=== PATIENT | male | born 1950 | race Caucasian/White ===

== ENCOUNTER 2023-11-20 13:05 | Emergency (ER) | payer OTHER, SELFPAY ==
[2023-11-20 13:24] VITALS: BP 129/59; PULSE 58; RESP 16; TEMP 36.7; O2SAT 98
--- NOTE | 2023-11-20 13:31 | ED.URI ---
HPI - URI/Sore Throat General Chief Complaint: Upper Respiratory Infection Stated Complaint: Sinus Congestion/Diarrhea Time Seen by Provider: 11/20/23 13:31 Source: patient Mode of arrival: ambulatory Limitations: no limitations History of Present Illness HPI Narrative: 73-year-old male presented for complaint of nasal congestion, cough, and diarrhea. Reports nasal congestion cough worsening over the past 2 weeks, occasional wheeze at night. States diarrhea has worsened over the past week. Endorses a history of lactose intolerance, and has not been taking lactose medication. Denies abdominal pain, hematochezia, melena or decreased appetite. Denies shortness of breath, wheezing, nausea, vomiting, Fever or lethargy. taking [id number] flu/ cold medication for symptoms. Related Data Home Medications Medication Instructions Recorded Confirmed dapagliflozin propanediol 10 mg 10 mg PO DAILY 11/20/23 11/20/23 tablet (Farxiga) donepezil 5 mg tablet 10 mg PO HS 11/20/23 11/20/23 ezetimibe 10 mg tablet 10 mg PO DAILY 11/20/23 11/20/23 insulin glargine U-300 conc 300 40 unit subcut DAILY 11/20/23 11/20/23 unit/mL (1.5 mL) subcutaneous pen (Toujeo SoloStar U-300 Insulin) sertraline 100 mg tablet 100 mg PO DAILY 11/20/23 11/20/23 Allergies Allergy/AdvReac Type Severity Reaction Status Date / Time No Known Allergies Allergy Verified 11/20/23 13:22 Review of Systems Review of Systems: CONSTITUTIONAL: Denies body aches, fever, chills, or sweats. EYES: Denies visual changes, redness, or discharge. ENT: reports rhinorrhea, congestion, denies sore throat, or otalgia. CARDIOVASCULAR: Denies chest pain, palpitations, or edema. RESPIRATORY: Reports cough, denies sob GASTROINTESTINAL: Denies abdominal pain, nausea, vomiting, or diarrhea. SKIN: Denies rash, itching, or wounds. MUSCULOSKELETAL: Denies back pain, joint pain, or myalgia. NEUROLOGIC: reports headache All systems reviewed & are unremarkable except as noted in HPI and below PMFSH Past Medical History Medical History (Updated 11/20/23 @ 14:38 by Wanda Leon, PAT) Diabetes Comments At time of signature, I have reviewed and agree with nursing past medical, surgical, social and family history unless otherwise noted. Please see nursing chart for further information. There is no relevant family history pertinent to the presenting complaint Exam Narrative: GENERAL: Well-appearing, in no acute distress. EYES: EOMI. No redness or drainage. Conjunctivae normal. ENT: Mucous membranes pink and moist. No rhinorrhea. TMs normal bilaterally. Throat normal. Uvula midline. CHEST: No respiratory distress. Expiratory Wheezing to Bilateral bases. HEART: Regular rate and rhythm. No murmur appreciated. ABDOMEN: Soft, nontender, nondistended, normal active bowel sounds. SKIN: Warm, dry, no rash. Capillary refill normal. Normal skin turgor. NEURO: Alert and oriented x3. Gait steady. PSYCH: Normal affect. Course Course Emergency Course: Patient is aware of diagnosis, understands and agrees to treatment plan. Anticipatory guidance given. Patient agrees to follow-up as directed and is aware of reasons to seek care at the emergency department. Portions of this record may have been created with voice recognition software Level of Care: Express Care Visit Vital Signs Vital signs: Vital Signs Temperature 98.1 F 11/20/23 13:24 Pulse Rate 58 L 11/20/23 13:24 Respiratory Rate 16 11/20/23 13:24 Blood Pressure 129/59 L 11/20/23 13:24 Pulse Oximetry 98 11/20/23 13:24 Oxygen Delivery Room Air 11/20/23 13:24 Temperature 98.1 F 11/20/23 13:35 Pulse Rate 58 L 11/20/23 13:35 Respiratory Rate 16 11/20/23 13:35 Blood Pressure 129/59 L 11/20/23 13:35 Pulse Oximetry 98 11/20/23 13:35 Oxygen Delivery Room Air 11/20/23 13:35 MDM - URI/Sore Throat MDM Narrative Medical decision making narrative: Discussed
[2023-11-20 13:35] VITALS: BP 129/59; PULSE 58; RESP 16; TEMP 36.7; O2SAT 98
== END 2023-11-20 13:50 | disposition home or self-care (01) ==
PROVIDERS: Emergency Provider Nurse Practitioner Family; PCP Internal Medicine
DX: J40 Bronchitis, not specified as acute or chronic (principal); J06.9 Acute upper respiratory infection, unspecified; R19.7 Diarrhea, unspecified; E11.9 Type 2 diabetes mellitus without complications; Z79.4 Long term (current) use of insulin
CPT/HCPCS: 99213; G0463

== ENCOUNTER 2024-11-21 08:40 | Emergency (ER) | payer OTHER, SELFPAY ==
--- NOTE | ~2024-11-21 | XR_ITS ---
EXAMINATION: XR chest 2V DATE: 11/21/2024 09:18 INDICATION: Cough and congestion. TECHNIQUE: Frontal and lateral views of the chest were obtained. COMPARISON: None. FINDINGS: There is mild atelectasis at left lung base. No pleural effusion or pneumothorax. The heart size is normal. IMPRESSION: 1. Mild atelectasis at left lung base. Reviewed, dictated and finalized at location A.
[2024-11-21 08:46] VITALS: BP 124/65; PULSE 59; RESP 20; TEMP 36.4; O2SAT 98
--- OUTSIDE RECORDS SUMMARY | 2024-11-21 09:01 | XMS_ITS | Encounter Summary ---
Author Organization [facility] Healthcare Address [address] [place] [address] Care Team Providers Care Manuscript Editor Name Role Phone Trever Hilliard MD Primary Care Provider [phone]- [phone] Reason for Referral * MRI/CAT/PET Scan (Routine) - Closed Specialty Diagnoses / Procedures Referred By Contrigoberto [email or web address] Referred To Contact Radiology Procedures MRI Brain WO Contrast Gabo Szymanski MD [address] [place] [address] Phone: tel: Referral ID Status Reason Start Date Expiration Date Visits Re quested Visits Authorized [id number] Closed 11/19/2024 12/19/2025 1 1 Encounter Details Date Type Department Care Team (Late st Contact Info) Description 11/19/2024 Orders Only [facility] [address] [place] [id number] Gabo Szymanski MD [address] [place] [address] Social History Tobacco Use Types Packs/Day Years Used Date Smoking Tobacco: Never Smokeless Tobacco: Never AUDIT-C Answer Date Recorded Q1: How often do you have a drink containing alcohol? Never 08/19/2024 Q2: How many drinks containi ng alcohol do you have on a typical day when you are drinking? Patient does not drink Q3: How often do you have si x or more drinks on one occasion? Never 08/19/2024 PHQ-2 Answer Date Recorded PHQ-2 Total Score (If total score is 3 or more points, staff should administer the PHQ-9) 0 02/16/2024 Personal Safety Answer Date Recorded Have you ever been in or are you currently in a harmful physical or emotional relationship or is someone making you feel afraid or unsafe? 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 Gender Identity Not on file Sexual Orientation Not on file documented as of this encounter Plan of Treatment Not on file documented as of this encounter Procedures Procedure Name Priority Date/Time Associated Diagnosis Comments MRI BRAIN WO CONTRAST Schedule Routine, Read Routine (OP Routine) 11/19/2024 2:55 PM CDT documented in this encounter Results * MRI Brain WO Contrast (11/19/2024 2:55 PM CDT) Anatomical Region Laterality Modality Head and Neck N/A Magnetic Resonan ce us Historical Provider MD [facility] MRI PROCEDURES Final Result documented in this encounter Visit Diagnoses Not on filedocumented in this encounter Care Teams Manuscript Editor Relationship Specialty Start Date End Date Trever Hilliard MD PCP - General 10/04/13 documented as of this encounter
--- OUTSIDE RECORDS SUMMARY | 2024-11-21 09:01 | XMS_ITS | Encounter Summary ---
[facility] Organization [facility] [address] [place] [address] Phone Care Team Providers Care Cst Name Role Phone Trever Hilliard MD Primary Care Provider [phone]- [phone] Trever Hilliard MD Primary Care Provider + [phone] Trever Hilliard MD Primary Care Provider Trever Hilliard MD Primary Care Provider [phone]- [phone] Encounter Details Date Type Department Care Team (Late st Contact Info) Description 06/06/1951 Orders Only [facility] [address] [place] [address] Scanning, Provider Social History Tobacco Use Types Packs/Day Years Used Date Smoking Tobacco: Never Assessed Sex and Gender Information Value Date Recorded Sex Assigned at Not on file 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 Gender Identity Not on file Sexual Orientation Not on file documented as of this encounter Plan of Treatment Not on file documented as of this encounter Procedures Procedure Name Priority Date/Time Associated Diagnosis Comments PROCEDURE - RESULT 06/06/1951 documented in this encounter Results * PROCEDURE - RESULT (06/06/1951) us Provider Scanning Final Result documented in this encounter Visit Diagnoses Not on filedocumented in this encounter Care Teams Cst Relationship Specialty Start Date End Date Trever Hilliard MD PCP - General 10/04/13 Trever Hilliard MD PCP - General 10/29/12 10/03/13 Trever Hilliard MD PCP - General 01/27/12 10/28/12 Trever Hilliard MD PCP - General 01/07/11 01/26/12 documented as of this encounter
--- OUTSIDE RECORDS SUMMARY | 2024-11-21 09:01 | XMS_ITS | Clinical Summary ---
Author Organization [facility] Address [address] [place] [address] Care Team Providers Care Lawn Specialist Name Role Phone Trever Hilliard MD Primary Care Provider [phone] Allergies Active Allergy Reactions Criticality Noted Date Comments Ketoconazole Rash Medium 10/26/2021 Reaction: rash, Pravastatin Nausea only Low 08/18/2018 Medications ketoconazole (NIZORAL) 2 % cream APPLY TO RASH AND 1/2 INCH AROUND BORDER X3-4 WEEKS 2 Active pen needle, diabetic 31 gauge x 5/16 needle Use to inject 1-4 times daily as directed. 300 each 4 3 Active hydrOXYzine (VISTARIL) 25 mg capsuleIndicati ons:anxiety Take 1 capsule (25 mg total) by mouth 3 (three) times a day as needed for anxiety 15 capsule 3 Active memantine (NAMENDA) 10 mg tabletIndicatio ns:Moderate to Severe Alzheimer's Type Dementia Take half tablet po bid for two weeks, then one tablet po bid 60 tablet 5 5 Active ezetimibe (ZETIA) 10 mg tabletIndicatio ns:Hyperlipidem ia, mixed Take 1 tablet (10 mg total) by mouth daily 90 tablet 1 5 Active dapagliflozin propanediol (Farxiga) 10 mg tabletIndicatio ns:Type 2 diabetes mellitus with hyperglycemia, unspecified whether chcf insulin use (HCC) Take 1 tablet (10 mg total) by mouth daily 90 tablet 1 5 Active sertraline (ZOLOFT) 100 mg tabletIndicatio ns:Generalized anxiety disorder Take 1 tablet (100 mg total) by mouth daily 90 tablet 1 5 Active donepeziL (ARICEPT) 10 mg tabletIndicatio ns:MCI (mild cognitive impairment) with memory loss,Alzheimer' s disease, unspecified (HCC) Take 1 tablet (10 mg total) by mouth nightly 90 tablet 1 5 Active insulin glargine (TOUJEO) 300 unit/mL (1.5 mL) pen for injectionIndica tions:Type 2 diabetes mellitus with hyperglycemia, with long-term current use of insulin (HCC) Inject 40 Units under the skin daily PATIENT TO INJECT 40 UNITS DAILY 13.5 mL 5 5 Active insulin glargine (TOUJEO) 300 unit/mL (1.5 mL) pen for injection PATIENT TO INJECT 44 UNITS DAILY 4 025 Discontinued Active Problems Problem Noted Date Diagnosed Date Personal history of colonic polyps 05/20/2024 Assessment & Plan (10/18/2024 5:33 PM FRUIT GRADER OPERATOR): Complete 2 months ago benign polyp found. Encounter for screening colonoscopy 05/20/2024 Alzheimer's disease, unspecified 05/22/2023 Assessment & Plan (10/18/2024 5:23 PM FRUIT GRADER OPERATOR): Patient under care of Dr. Salomon neurologist [facility]. On Namenda and Aricept. Assessment & Plan (02/16/2024 5:08 PM CDT): reporting his dementia is slowly getting worse behavioral problems. Will add Namenda to his management along with Aricept. Refer to neurology wires requesting 2nd opinion. CT scan in his head B12 TSH is requested also Tinea corporis 07/11/2022 Assessment & Plan (07/11/2022 6:34 PM FRUIT GRADER OPERATOR): Patient sore Dermatology some on Nizoral this helps some has not relieved her symptoms. Minute given Diflucan 200 mg once a week x2 weeks is to continue to cream.. As active rash groin down his left leg MCI (mild cognitive impairment) with memory loss 07/11/2022 Assessment & Plan (05/22/2023 6:31 PM CDT): Patient is tolerating Aricept 5 mg daily will increase to 10 mg daily. Assessment & Plan (11/09/2022 2:18 PM CDT): No further evidence of memory loss he is on Aricept 5 mg daily for about 3-4 months now. 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 His mini mental state examination (MMSE) score is 18. Heart this patient Aricept 5 mg daily for 6 months if he tolerates the medicine increased to 10 mg. Patient's advised the medicines try to preserve his memory he recognizes he has some decrease in concentration and memory. Atopic dermatitis 08/17/2021 Assessment & Plan (08/17/2021 4:13 PM FRUIT GRADER OPERATOR): Patient has pruritic papular rash on the face most consistent with atopic dermatitis. Patient concerned related to Trulicity however, he does not have any rash anywhere else and not consistent with a true medication rash. 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 He was encouraged to keep face covered when working and wash face immediately after coming in. He is to avoid scratching and can use an oral daily antihistamine. He is to call or return with worsening or persistent symptoms. Right shoulder pain 12/11/2020 Assessment & Plan (12/11/2020 5:54 PM CDT): Right shoulder pain began in the last 3 weeks. He has limited range of motion laterally and anteriorly. About 30 he has significant pain and a gets better at about 120 . Recently had difficult to control his tractor at work secondary to problems with his right arm.. Patient's right hand will get an x-ray of his right shoulder refer to Orthopedics. Generalized anxiety disorder 04/18/2019 Assessment & Plan (10/18/2024 5:35 PM FRUIT GRADER OPERATOR): Zoloft with 100 g per day continues to be effective in controlling his anxiety in his mood. Assessment & Plan (05/11/2024 1:41 PM CDT): Mood is very stable he remains on Zoloft 100 mg daily and Vistaril 25 mg. Assessment & Plan (11/09/2022 2:17 PM CDT): Anxiety remains stable no change in therapy Assessment & Plan (02/25/2022 1:28 PM CDT): Anxiety remains very stable no change in therapy Assessment & Plan (10/26/2021 6:46 PM FRUIT GRADER OPERATOR): Patient's anxiety level is resolved at this time. Assessment & Plan (02/07/2020 6:16 PM CDT): Patient not having any general anxiety problems at this time.. With in the midst of COVID-19 in his handling very well. Assessment & Plan (04/18/2019 6:40 PM CDT): Patient missed the worries about multiple things throughout the day. Sometimes interferes with sleep. Patient was previously on Zoloft he discontinued the Zoloft. His anxiety gradually built up since then. Plans at this time resume Zoloft Medicare annual wellness visit, subsequent 07/14 Assessment & Plan (11/09/2022 2:14 PM CDT): History and physical completed patient's health risk assessment health maintenance reviewed in addressed. Patient advised me immunizations cyst specially shingles vaccine. Assessment & Plan (10/26/2021 6:44 PM FRUIT GRADER OPERATOR): History and physical completed patient's health risk assessment health maintenance reviewed in addressed. Assessment & Plan (08/14/2020 6:19 PM FRUIT GRADER OPERATOR): History and physical completed health risk assessment health maintenance reviewed in addressed. Patient had the Prevnar 13 immunization elected not to given the Pneumovax 23. Patient is describes the last immunization receive his flu a few years ago he began quite health following this. Give several days to get over his more just aches and pains. PSA will be obtained on the next visit Assessment & Plan (07/14/2018 2:32 PM FRUIT GRADER OPERATOR): Patient's history for annual exam focuses on his diabetes which is out a controlled re-emphasized the need get eye exams annually patient's immunization reviewed flu shot given at another location prior to today's visit. Hyperlipidemia, mixed 07/14/2018 Assessment & Plan (05/11/2024 1:40 PM CDT): Patient remains on Zetia 10 mg daily lipid profile therapeutic range no new recommendations. Component Latest Ref Rng 09/04/2023 Cholesterol <200 mg/dL 181 HDL Cholesterol > OR = 40 mg/dL 47 Triglycerides <150 mg/dL 186 (H) LDL mg/dL (calc) 104 (H) Chol/HDL ratio <5.0 (calc) 3.9 Non-HDL Cholesterol <130 mg/dL (calc) 134 (H) Legend: (H) High Assessment & Plan (06/18/2021 6:12 PM CDT): Check lipid profile next visit anticipate some improvement with concurrent improvement diabetes now he is going to be on a GL P 1 products if he tolerates it. Assessment & Plan (12/11/2020 5:58 PM CDT): Lipid profile reviewed anticipate improvement with dietary changes no changes with respect to medications. Assessment & Plan (02/07/2020 6:16 PM CDT): He is last 2018 lipid profile in therapeutic range will recheck lipid profile on the next visit Assessment & Plan (11/02/2018 5:09 PM FRUIT GRADER OPERATOR): Recent lipid profile is excellent no change in therapy Assessment & Plan (08/18/2018 5:09 PM FRUIT GRADER OPERATOR): . Last cholesterol was 236 on July 03, 2018. Patient has not been taking pravastatin gives some abdominal discomfort. At this time I am going to start him on Zetia discontinued of his pravastatin. Assessment & Plan (07/14/2018 2:33 PM FRUIT GRADER OPERATOR): Lipid abnormalities are Cholesterol 230 patient's diet is not good lot of carbohydrates diabetes not control anticipate improved in next few months patient's now following a diet after his diabetes way out a controlled. Type 2 diabetes mellitus with hyperglycemia 06/28 Assessment & Plan (10/18/2024 5:34 PM FRUIT GRADER OPERATOR): Diabetes poor control for the past 2 years his HgbA1c has been between 7.7-8.5 secondary to his behavior. Heating pad pattern drinking lots of sodas and other things he should not do. Present HgbA1c is pending no new recommendations is pending lab is renal functions lipid profile he did get a eye exam July 03, 2024 results were good. Will contact patient for adjustments when lab returns in the next few days. We will continue Farxiga 10 mg daily and basal insulin 44 units daily Assessment & Plan (05/11/2024 1:37 PM CDT): Patient continues on basal insulin 44 units daily. He is not made any significant change in lifestyle meaning continues to drink soda on a daily basis and eat lots of sweets. He does check his fingerstick is not uncommon for to be in the low 200s.. No polyuria polyphagia polydipsia. He has had his eye exam done and has another 1 coming up in a few months. Foot exam completed with some decreased sensitivity monofilament test. Pulses are good.. Assessment & Plan (02/16/2024 5:10 PM CDT): Hemoglobin HgbA1c 8.1. Past 3 years his HgbA1c is between 7.7-8.5. Patient has difficulty with compliance he likes to eat lot of snacks and sodas which works against diabetic control. No polyuria polyphagia polydipsia. Assessment & Plan (09/13/2023 3:01 PM FRUIT GRADER OPERATOR): Diabetes out of control HgbA1c is 8.5 patient now tells me he is taking his insulin every other day. On the last visit I moved his insulin 22 units daily to 26 units and he had no side effects. Patient is still drinks a lot of sodas and niece wrong things. Advising him at this time to resume insulin on a daily basis. 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 Patient feels well also maybe a little bit better patient's change he has a little bit more energy. Emphasized with this patient to be compliant in taking his medications as well as continue make dietary changes. See him back in 4 months at that time check his BMP fasting lipid profile urine for microalbuminuria. Anticipating further improvement in his HgbA1c Hgb A1C Latest Ref Rng <5.7 % of total Hgb 06/11/2021 10.1 (H) 10/12/2021 8.1 (H) 02/22/2022 7.8 (H) 07/07/2022 8.8 (H) 11/04/2022 8.2 (H) 02/16/2023 8.4 (H) 05/08/2023 7.7 (H) Legend: (H) High Assessment & Plan (02/18/2023 2:52 PM CDT): Diabetes not controlled half of his glucometer fasting readings reasonably good 130-140 range however his HgbA1c is 8.4, patient is taking 22 units of insulin MN increase this to 26 units basal insulin. Is given instructions once he has brought his diabetes in controlled he is no longer running consistently above 140 and we may want to go up by 2 units to 20 units of insulin. Minutes see this gentleman back in 3 months. Hgb A1C Latest Ref Rng <5.7 % of total Hgb 04/05/2019 7.1 (H) 08/09/2019 6.7 (H) 02/04/2020 7.2 (H) 08/07/2020 8.6 (H) 12/08/2020 7.8 (H) 06/11/2021 10.1 (H) 10/12/2021 8.1 (H) 02/22/2022 7.8 (H) 07/07/2022 8.8 (H) 11/04/2022 8.2 (H) 02/16/2023 8.4 (H) Legend: (H) High Assessment & Plan (01/14/2023 3:09 PM CDT): Diabetes not controlled patient's advised to discontinue Trulicity is GI symptoms went away.. Patient decided to go back on metformin recently so far he is not had any GI problems. Diabetes not controlled with oral medicine or GLP 1. At this time I am going to start him on Toujeo 12 units daily. Patient's taught how to himself insulin. 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 Patient monitor his glucose on a daily basis fasting progress 7 and 14 days on his glucometer results. Did not tell patient's stop the metformin since he is tolerating it at this time Assessment & Plan (12/20/2022 8:34 PM CDT): Does not check sugars regularly at home. Last HbA1c was 8.2 1 month ago, down from 8.8 in June. Stopped metformin approx 6 weeks ago due to diarrhea. Taking farxiga and trulicity as directed. Still has sweets occasionally . Weight stable, BMI at 25.9. continue to lessen amount of concentrated sweets, low carb diet. Heart healthy exercise encouraged. Keep follow and repeat labs in 2 months. Assessment & Plan (11/09/2022 2:16 PM CDT): Diabetes not controlled much of this is did secondary to dietary habit of 50-64 oz per day. I he is advised make a goal of reducing the amount by 1/2 he start by not drinking a full 32 oz bottle of soda every day but half a bottle 10 make a difference. Patient is on Trulicity 3 mg he is having little bit of side effects from it I do not want increase Trulicity. If he does not come down with respect to his HgbA1c that I would have to introduce insulin he so advised. Will see him back in the next few months Component Hgb A1C Latest Ref Rng & Units <5.7 % of total Hgb 08/07/2020 8.6 (H) 12/08/2020 7.8 (H) 06/11/2021 10.1 (H) 10/12/2021 8.1 (H) 02/22/2022 7.8 (H) 07/07/2022 8.8 (H) 11/04/2022 8.2 (H) Assessment & Plan (07/11/2022 6:31 PM FRUIT GRADER OPERATOR): Diabetes not controlled patient continues to drink a lot of sodas and does not eat appropriate foods. He is on Trulicity 1.5 mg once a week when crease 3 mg once a week. Patient Farxiga 10 mg daily he takes the medicine 5 days a week because of forgetting on other days. Component Hgb A1C Latest Ref Rng & Units <5.7 % of total Hgb 02/04/2020 7.2 (H) 08/07/2020 8.6 (H) 12/08/2020 7.8 (H) 06/11/2021 10.1 (H) 10/12/2021 8.1 (H) 02/22/2022 7.8 (H) 07/07/2022 8.8 (H) Assessment & Plan (02/25/2022 1:27 PM CDT): Diabetes has improved. Patient is now taking Trulicity 1.5 mg once a week without any side effects. identifies reasons diabetes is not better control he is taking to 32 oz drinks of soda with additional ibanez syrup in the drinks every day minimum of 2.. Patient is advised is correct this is a significant factor in controlling his diabetes.. Will recheck HgbA1c in 4 months. Encourage appropriate lifestyle changes Assessment & Plan (10/26/2021 6:46 PM FRUIT GRADER OPERATOR): Patient start having some GI disturbance he back his Trulicity down from 1.5 0.75 mg once a week. Last several weeks he has had no GI disturbance. Given the fact his HgbA1c is 8.1 mm ask him to resume taking Trulicity at 1.5 mg once a week.. She did further improve his HgbA1c. No polyuria polyphagia polydipsia. Patient's advised get annual eye exam is no neuropathy in his feet Component Hgb A1C Latest Ref Rng & Units <5.7 % of total Hgb 01/13/2017 7.5 (H) 10/23/2018 6.6 (H) 04/05/2019 7.1 (H) 08/09/2019 6.7 (H) 02/04/2020 7.2 (H) 08/07/2020 8.6 (H) 12/08/2020 7.8 (H) 06/11/2021 10.1 (H) 10/12/2021 8.1 (H) Assessment & Plan (06/18/2021 6:11 PM CDT): Diabetes not controlled patient resume drinking lot of sodas. In addition is sees drinking some beer tonight in eats a lot of ice cream. Patient advised me despite his promises to do better on drinking this sodas he will not make significant dietary changes.. At this time start him on Trulicity she advised me insurance will cover this. Started minimum dose is 0.75 mg once a week. With titrate up accordingly has see him back in 3-4 months. Component Hgb A1C Latest Ref Rng & Units <5.7 % of total Hgb 06/24/2016 7.0 (H) 01/13/2017 7.5 (H) 10/23/2018 6.6 (H) 04/05/2019 7.1 (H) 08/09/2019 6.7 (H) 02/04/2020 7.2 (H) 08/07/2020 8.6 (H) 12/08/2020 7.8 (H) 06/11/2021 10.1 (H) Assessment & Plan (12/11/2020 5:52 PM CDT): Patient's HgbA1c did improve was previously 8.2 dropped to 7.8 patient may changes in terms of consumption of juice and soda. However this was not sustain in his glucose numbers begin to reverse. Is apparent on review of his glucometer readings. At this time increased patient procedure from 5 mg daily to 10 mg daily. Patient is having adverse response to metformin with diarrhea. Review with he and his stop the metformin himself at least 1 week symptom free. Review with them how to titrate metformin. Advised him anticipate that his maximal intolerance of metformin maybe 1500 mg. Sees patient back 4 months repeat HgbA1c at that time. Assessment & Plan (08/14/2020 6:21 PM FRUIT GRADER OPERATOR): Patient's hemoglobin HgbA1c previous 7.4 it is now 8.6. Patient's lifestyle is changes drinking 32 oz of ibanez cold saline sometimes 64 oz per day. Advised patient simply getting rid this habit may bring his HgbA1c back down to 7.2 and below.. He has no other of changes in his lifestyle he feels well. Assessment & Plan (02/07/2020 6:15 PM CDT): Diabetes well controlled for 69-year-old gentleman his HgbA1c is 7.2 past year his HgbA1c has ranged between 6.6-7.2. Patient is following his diet he is exercising he feels well.. Continue to monitor his diabetes no further recommendations at this time. Assessment & Plan (08/15/2019 5:50 PM FRUIT GRADER OPERATOR): Hemoglobin HgbA1c is 6.7 this is an excellent result the as of 08/09/2019. Patient admits that he eats a lot of junk food despite this his diabetes is well controlled at this point.. Lifestyle changes recommended no medication changes at this point. Assessment & Plan (04/18/2019 6:38 PM CDT): Patient's hemoglobin HgbA1c went from 6.6 to 7.1 patient's identifies the change directly related to increased intake of junk food. Patient complains of polyuria this is most likely related to increased drinking sodas along with the medication Farxiga. He is advised discontinue soda. Recheck his HgbA1c in the next 4 months on a follow-up visit. Patient care courage to continue exercise. Eye exam is current no problems with feet. Assessment & Plan (11/02/2018 5:12 PM FRUIT GRADER OPERATOR): Hemoglobin HgbA1c is 6.6 this is a decrease from year ago when HgbA1c is 7.5. Under fact that may have influence since improvement was a neighborhood stored he would go to frequently and would get junk food that stores close therefore he is not exposed to the junk food as much as he was previously. Feels well on his present medications and level of HgbA1c. No change in therapy. Patient is on Farxiga which is extraordinary expensive. Samples were given patient's was advised to contact her insurance company to identify which drug in the SGOT 2 category will be covered under his insurance. Patient recently had an eye exam at [facility] optical request release of records. His eye exam September 2017 was excellent. Assessment & Plan (08/18/2018 5:06 PM FRUIT GRADER OPERATOR): Patient is here for follow-up visit regarding diabetes he advised knees made appropriate changes in terms of lifestyle specifically eliminate and junk food.. His glucometer readings of much better. I did a fructosamine level is now within normal range this confirms that he is making correct changes. Patient knows he is urinating more he is on Farxiga. At this time I have no new recommendations repeat hemoglobin HgbA1c in a few months. Will discontinue pravastatin is not take complains of abdominal pain will start him on Zetia 10 mg daily for his cholesterol. Assessment & Plan (07/14/2018 2:27 PM FRUIT GRADER OPERATOR): Diabetes sciatica patient's presently taking and Farxiga 5 mg per day and metformin 2000 mg daily. Had a discussion over the phone about changing him to Glyxambi to get better control of his diabetes on today's exam knee reveals is dietary have I will not make any changes. Patient needs to address his diet he is going through a lot of sodas and tender barring cake every day he stop this for the past 3 days. For depression to asthma educator he last saw them approximately 5 years ago. Get a fructosamine level in 4 weeks. 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 I emphasized the need to take care of himself respect his diabetes otherwise vision was significantly be threaded is time for him to get an eye exam. Assessment & Plan (06/11/2018 6:37 PM CDT): . Patient's last fructosamine level was 310 this is equal to approximate hemoglobin HgbA1c range 7.5 to 7.7. This was done in February 2018. Patient not checking his sugar on a daily basis is not on insulin.. Will have a repeat lab done around 10 from June. However I did write a prescription for prednisone 20 mg per day for 7 day in the event his allergy problems do not get better. Assessment & Plan (01/06/2018 4:55 PM CDT): Diabetes is worsening. Continue current treatment regimen. Reminded to bring in blood sugar diary at next visit. Dietary recommendations for ADA diet. Discussed ways to avoid symptomatic hypoglycemia. Diabetes will be reassessed in 3 months. Patient hemoglobin HgbA1c went from 7.5-10.0 means his sugars is running approximately 150 now is running 249. Patient's diet is been hard on the last several months eating lots of sweets including sodas is present. Dietary changes immediately start this patient on Farxiga 5 mg samples given for 3 weeks coupon is given prescriptions sent. Will see him back in a few months fructosamine level in about 3 months. Side effects of yeast infection are discussed. Assessment & Plan (07/07/2017 4:56 PM FRUIT GRADER OPERATOR): Patient states he has been following his diet much closely. However he has not been taking his medicine as directed. He is on metformin a 1000 milligrams twice a day he may take medicine 20 days out of the month. 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 Patient for solve advised to take his meals 3 times a day and resume taking his medicines as directed. Will get a hemoglobin HgbA1c today and a fructosamine level. Anticipate his HgbA1c has gone up since his own take his medicine is under month once he resumes taking it 30 days out a month ago do a follow-up fructosamine level. B12 levels checked today. Asthma 01/11/2014 Overview (12/01/2016): Asthma Assessment & Plan (10/18/2024 5:37 PM FRUIT GRADER OPERATOR): Asthma stable no increase in symptoms with recent cold weather. Albuterol p.r.n. as effective in controlling symptoms Assessment & Plan (10/26/2021 6:46 PM FRUIT GRADER OPERATOR): Asthma is very stable use albuterol on a very limited basis Assessment & Plan (06/18/2021 6:11 PM CDT): Asthma stable no change in therapy Assessment & Plan (12/11/2020 5:55 PM CDT): Asthma symptoms very stable since wearing mass no change in therapy. Assessment & Plan (08/14/2020 6:21 PM FRUIT GRADER OPERATOR): Patient's asthma is very stable no change in therapy Assessment & Plan (08/15/2019 5:51 PM FRUIT GRADER OPERATOR): Patient rarely uses albuterol HFA despite cold weather he is doing very well at this time.. Patient is aware he needs have a flu shot pneumonia vaccine both knees updating. Assessment & Plan (04/18/2019 6:40 PM CDT): Patient's breathing is very stable no complications. Assessment & Plan (11/02/2018 5:07 PM FRUIT GRADER OPERATOR): Patient's done very well he has had no acute a/exacerbation of his asthma this was a during the cold weather.. Continue present therapy. Patient has been very cautious in exposing himself to the very cold weather a unnecessarily. Assessment & Plan (07/14/2018 2:28 PM FRUIT GRADER OPERATOR): Asthma is very stable uses rescue inhaler less than twice a week. Assessment & Plan (06/11/2018 6:38 PM CDT): Despite patient recent head congestion chest congestion he is not having asthma. He does not have any wheezing at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
--- OUTSIDE RECORDS SUMMARY | 2024-11-21 09:01 | XMS_ITS | Encounter Summary ---
[facility] [address] [place] [address] Phone Care Team Providers Care Explosive Operator Supervisor Name Role Phone Trever Hilliard MD Primary Care Provider [phone]- [phone] Encounter Details Date Type Department Care Team (Late st Contact Info) Description 07/13/2017 Orders Only [facility] [address] [place] [phone] Trever Hilliard MD [address] [address] Social History Tobacco Use Types Packs/Day Years Used Date Smoking Tobacco: Never Smokeless Tobacco: Never Sex and Gender Information Value Date Recorded Sex Assigned at Not on file 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 Gender Identity Not on file Sexual Orientation Not on file documented as of this encounter Plan of Treatment Not on file documented as of this encounter Procedures Procedure Name Priority Date/Time Associated Diagnosis Comments SCAN - LABS 07/13/2017 12:05 PM MARKET ASSET PROTECTION MANAGER documented in this encounter Results * SCAN - LABS (07/13/2017 12:05 PM MARKET ASSET PROTECTION MANAGER) us Trever Hilliard MD Final Resu lt documented in this encounter Visit Diagnoses Not on filedocumented in this encounter Care Teams Explosive Operator Supervisor Relationship Specialty Start Date End Date Trever Hilliard MD PCP - General 10/04/13 documented as of this encounter
--- OUTSIDE RECORDS SUMMARY | 2024-11-21 09:01 | XMS_ITS | Encounter Summary ---
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 She can also shredder picker MRI CD when ever is here at the office. * Telephone Encounter - Angie Trujillo MA - 11/19/2024 2:57 PM CDT We received MRI results. Please advise * Telephone Encounter - Angie Trujillo MA - 11/18/2024 3:50 PM CDT Patient completed MRI at [facility] in [place]. We already received CD from patient's . [facility] is faxing the results for the MRI. Please check to see if we received results and then send this message back to Dr. Doll. Thank you! * Telephone Encounter - Angie Trujillo MA - 11/15/2024 11:11 AM CDT Patient's called and would like to know the results of MRI. Please advise. documented in this encounter Plan of Treatment Not on file documented as of this encounter Visit Diagnoses Not on filedocumented in this encounter Care Teams Wind Plant Manager Relationship Specialty Start Date End Date Trever Hilliard MD PCP - General 10/04/13 documented as of this encounter
--- OUTSIDE RECORDS SUMMARY | 2024-11-21 09:01 | XMS_ITS | Referral Summary ---
Author Organization [facility] Address [address] [place] [address] Care Team Providers Care Basin Cleaner Name Role Phone Trever Hilliard MD Primary Care Provider +1- [phone] Encounters Date Type Department Care Team Description 11/19/2024 Orders Only [facility] [address] [facility] [address] [facility] [address] [place] [address] Gabo Szymanski MD 11/15/2024 Telephone [facility] Neurology [facility] [address] [place] [phone] Angie Trujillo MA 11/02/2024 [facility] [address] [place] [address] Trever Hilliard MD 10/18/2024 2:45 PM MEDICAL CHIEF TECHNICIAN [facility] [address] [place] [address] Trever Hilliard MD Hyperlipidemia, mixed (Primary Dx); Type 2 diabetes mellitus with hyperglycemia, unspecified whether [facility] insulin use (HCC); MCI (mild cognitive impairment) with memory loss; Alzheimer's disease, unspecified (HCC); Generalized anxiety disorder; Mild intermittent asthma without complication 10/07/2024 1:00 PM MEDICAL CHIEF TECHNICIAN Office Visit [facility] [address] [facility] [address] [place] [phone] Vincenzo Doll MD Alzheimer's dementia, unspecified dementia severity, unspecified timing of dementia onset, unspecified whether behavioral, psychotic, or mood disturbance or anxiety (HCC) from Last 3 Months Allergies Active Allergy Reactions Criticality Noted Date Comments Ketoconazole Rash Medium 10/26/2021 Reaction: rash, Pravastatin Nausea only Low 08/18/2018 Medications ketoconazole (NIZORAL) 2 % cream APPLY TO RASH AND 1/2 INCH AROUND BORDER X3-4 WEEKS 2 Active pen needle, diabetic 31 gauge x / needle Use to inject 1-4 times daily [...] 2 diabetes mellitus with hyperglycemia, 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 Encounter for screening colonoscopy 05/20/2024 Alzheimer's disease, unspecified 05/22/2023 Assessment & Plan (10/18/2024 5:23 PM MEDICAL CHIEF TECHNICIAN): Patient under care of Dr. Salomon neurologist [facility]. On Namenda and Aricept. Assessment & Plan (02/16/2024 5:08 PM CDT): reporting his dementia is slowly getting worse behavioral problems. Will add Namenda to his management along with Aricept. Refer to neurology wires requesting 2nd opinion. CT scan in his head B12 TSH is requested also Tinea corporis 07/11/2022 Assessment & Plan (07/11/2022 6:34 PM MEDICAL CHIEF TECHNICIAN): Patient sore Dermatology some on Nizoral this [...] now. 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 Assessment & Plan (10/26/2021 6:44 PM MEDICAL CHIEF TECHNICIAN): History and physical completed patient's health risk assessment health maintenance reviewed in addressed. Assessment & Plan (08/14/2020 6:19 PM MEDICAL CHIEF TECHNICIAN): History and physical completed health risk assessment [...] visit Assessment & Plan (07/14/2018 2:32 PM MEDICAL CHIEF TECHNICIAN): Patient's history for annual exam focuses on [...] (02/07/2020 6:16 PM CDT): He is last 2019 lipid profile in therapeutic range will recheck lipid profile on the next visit Assessment & Plan (11/02/2018 5:09 PM MEDICAL CHIEF TECHNICIAN): Recent lipid profile is excellent no change in therapy Assessment & Plan (08/18/2018 5:09 PM MEDICAL CHIEF TECHNICIAN): . Last cholesterol was 236 on July 03, 2018. Patient has not been taking pravastatin gives some abdominal discomfort. At this time I am going to start him on Zetia discontinued of his pravastatin. Assessment & Plan (07/14/2018 2:33 PM MEDICAL CHIEF TECHNICIAN): Lipid abnormalities are Cholesterol 230 patient's diet is not good lot of carbohydrates diabetes not control anticipate improved in next few months patient's now following a diet after his diabetes way out a controlled. Type 2 diabetes mellitus with hyperglycemia 06/28 Assessment & Plan (10/18/2024 5:34 PM MEDICAL CHIEF TECHNICIAN): Diabetes poor control for the past 2 [...] polydipsia. Assessment & Plan (09/13/2023 3:01 PM MEDICAL CHIEF TECHNICIAN): Diabetes out of control HgbA1c is 8.5 [...] (H) Assessment & Plan (07/11/2022 6:31 PM MEDICAL CHIEF TECHNICIAN): Diabetes not controlled patient continues to drink [...] changes Assessment & Plan (10/26/2021 6:46 PM MEDICAL CHIEF TECHNICIAN): Patient start having some GI disturbance he [...] time. Assessment & Plan (08/14/2020 6:21 PM MEDICAL CHIEF TECHNICIAN): Patient's hemoglobin HgbA1c previous 7.4 it is [...] time. Assessment & Plan (08/15/2019 5:50 PM MEDICAL CHIEF TECHNICIAN): Hemoglobin HgbA1c is 6.7 this is an [...] feet. Assessment & Plan (11/02/2018 5:12 PM MEDICAL CHIEF TECHNICIAN): Hemoglobin HgbA1c is 6.6 this is a [...] Patient recently had an eye exam at [facility] optical request release of records. His eye exam September 2017 was excellent. Assessment & Plan (08/18/2018 5:06 PM MEDICAL CHIEF TECHNICIAN): Patient is here for follow-up visit regarding [...] cholesterol. Assessment & Plan (07/14/2018 2:27 PM MEDICAL CHIEF TECHNICIAN): Diabetes sciatica patient's presently taking and Farxiga [...] the past 3 days. For depression to nurses educator he last saw them approximately 5 [...] discussed. Assessment & Plan (07/07/2017 4:56 PM MEDICAL CHIEF TECHNICIAN): Patient states he has been following his [...] Asthma Assessment & Plan (10/18/2024 5:37 PM MEDICAL CHIEF TECHNICIAN): Asthma stable no increase in symptoms with recent cold weather. Albuterol p.r.n. as effective in controlling symptoms Assessment & Plan (10/26/2021 6:46 PM MEDICAL CHIEF TECHNICIAN): Asthma is very stable use albuterol on a very limited basis Assessment & Plan (06/18/2021 6:11 PM CDT): Asthma stable no change in therapy Assessment & Plan (12/11/2020 5:55 PM CDT): Asthma symptoms very stable since wearing mass no change in therapy. Assessment & Plan (08/14/2020 6:21 PM MEDICAL CHIEF TECHNICIAN): Patient's asthma is very stable no change in therapy Assessment & Plan (08/15/2019 5:51 PM MEDICAL CHIEF TECHNICIAN): Patient rarely uses albuterol HFA despite cold weather he is doing very well at this time.. Patient is aware he needs have a flu shot pneumonia vaccine both knees updating. Assessment & Plan (04/18/2019 6:40 PM CDT): Patient's breathing is very stable no complications. Assessment & Plan (11/02/2018 5:07 PM MEDICAL CHIEF TECHNICIAN): Patient's done very well he has had no acute a/exacerbation of his asthma this was a during the cold weather.. Continue present therapy. Patient has been very cautious in exposing himself to the very cold weather a unnecessarily. Assessment & Plan (07/14/2018 2:28 PM MEDICAL CHIEF TECHNICIAN): Asthma is very stable uses rescue inhaler [...] comfortable. Assessment & Plan (07/07/2017 3:45 PM MEDICAL CHIEF TECHNICIAN): Patient asthma stable is doing very well at this time. Gastroesophageal reflux disease 01/11/2014 Overview (12/02/2016): GERD (gastroesophageal reflux disease) Assessment & Plan (07/07/2017 4:57 PM MEDICAL CHIEF TECHNICIAN): Patient reveals GERD symptoms have improved with [...] scheduled. Assessment & Plan (08/17/2021 4:11 PM MEDICAL CHIEF TECHNICIAN): Patient presents with reports of diarrhea, nausea, [...] 06/18/2021 Assessment & Plan (08/15/2019 5:54 PM MEDICAL CHIEF TECHNICIAN): Patient complains of brief burning with urination [...] 02/07/2020 Assessment & Plan (07/14/2018 2:32 PM MEDICAL CHIEF TECHNICIAN): Flu shot current given 06/11/2018 Assessment & Plan (06/11/2018 6:34 PM CDT): High dose flu shot given today Immunizations Immunization Administration Dates Next Due Influenza, Quadrivalent, Spl it, Intramuscular 07/04/2016 Influenza, Trivalent, High D ose, Split, Preservative Free, Intramuscular 05/10/2024,06/11/2018,07/07/2017 Influenza, Unspecified 06/07/2023(Deferred: Cece ent Refused) Israela SARS-CoV-2 Monovalen t Vaccination (12+ YRS) 11/02/2020,10/05/2020 Pneumococcal Conjugate PCV 13 01/13/2017 Pneumococcal Polysaccharide PPV23 10/26/2021 Tdap 02/25/2022 ZOSTER Recombinant 08/23/2024,02/17/2024 Social History Tobacco Use Types Packs/Day Years [...] on file Legal Sex Male 1:48 AM MEDICAL CHIEF TECHNICIAN Gender Identity Not on file Sexual Orientation Not on file Last Filed Vital Signs Vital Sign Reading Time Taken Comments Blood Pressure 128/66 10/18/2024 3:13 PM MEDICAL CHIEF TECHNICIAN Pulse 66 10/18/2024 3:13 PM MEDICAL CHIEF TECHNICIAN Temperature 36.7 C (98 F) 10/18/2024 3:13 PM MEDICAL CHIEF TECHNICIAN Respiratory Rate 16 10/18/2024 3:13 PM MEDICAL CHIEF TECHNICIAN Oxygen Saturation 96% 10/18/2024 3:13 PM MEDICAL CHIEF TECHNICIAN Inhaled Oxygen Concentration - - Weight 99.2 kg (218 lb 12.8 oz) 10/18/2024 3:13 PM MEDICAL CHIEF TECHNICIAN Height 185.4 cm (6' 1 ) 10/18/2024 3:13 PM MEDICAL CHIEF TECHNICIAN Body Mass Index 28.87 10/18/2024 3:13 PM MEDICAL CHIEF TECHNICIAN Plan of Treatment Not on file Procedures Procedure Name Priority Date/Time Associated Diagnosis Comments MRI BRAIN WO CONTRAST Schedule Routine, Read Routine (OP Routine) 11/19/2024 2:55 PM CDT HEPATITIS B SURFACE ANTIGEN Routine 10/29/2024 11:03 AM MEDICAL CHIEF TECHNICIAN Immunity status testing HEPATITIS B SURFACE ANTIBODY (IMMUNE STATUS) Routine 10/29/2024 11:03 AM MEDICAL CHIEF TECHNICIAN Immunity status testing HEPATITIS B CORE ANTIBODY, TOTAL Routine 10/29/2024 11:03 AM MEDICAL CHIEF TECHNICIAN Immunity status testing HEMOGLOBIN A1C Routine 10/29/2024 11:01 AM MEDICAL CHIEF TECHNICIAN Type 2 diabetes mellitus with hyperglycemia, without long-term current use of insulin (HCC) LIPID PANEL Routine 10/18/2024 2:03 PM MEDICAL CHIEF TECHNICIAN Hyperlipidemia, mixed COMPREHENSIVE METABOLIC PANEL Routine 10/18/2024 2:03 PM MEDICAL CHIEF TECHNICIAN Type 2 diabetes mellitus with hyperglycemia, unspecified whether [facility] insulin use (HCC) ALBUMIN CREATININE RATIO, URINE Routine 10/18/2024 2:03 PM MEDICAL CHIEF TECHNICIAN Type 2 diabetes mellitus with hyperglycemia, 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) COLONOSCOPY 08/19/2024 8:22 AM MEDICAL CHIEF TECHNICIAN PSA SCREEN Routine 10/12/2021 8:01 AM MEDICAL CHIEF TECHNICIAN Screening PSA (prostate specific antigen) HEPATITIS C ANTIBODY Routine 01/13/2017 10:25 AM CDT from Last 3 Months or Most Recently Relevant to Health Maintenance Results * MRI Brain WO Contrast (11/19/2024 2:55 PM CDT) Anatomical Region Laterality Modality Head and Neck N/A Magnetic Resonan ce us Historical Provider MD CAMPBELL MRI PROCEDURES Final Result * Hepatitis B core antibody, total Blood (10/29/2024 11:03 AM MEDICAL CHIEF TECHNICIAN) Hep B core IgG/IgM NON-REACTI VE NON-REACTI VE [facility] Comment: For additional information, please refer to http://education.DOMAIN [employer]/faq/KSF770 (This link is being provided for informational/ educational purposes only.) Blood 10/29/2024 11:0 3 AM MEDICAL CHIEF TECHNICIAN 10/29/2024 11:03 AM MEDICAL CHIEF TECHNICIAN Trever Hilliard MD LAB MICROBIOLOGY - GENERAL ORDERABLES Final Result Performing Organization Address [facility] Co de Phone Number [facility] [address] [place] [address] * Hepatitis B surface antibody (immune status) Blood (10/29/2024 11:03 AM MEDICAL CHIEF TECHNICIAN) HBsAb (immune status) NON-REACTI VE NON-REACTI VE [facility] Blood 10/29/2024 11:0 3 AM MEDICAL CHIEF TECHNICIAN 10/29/2024 11:03 AM MEDICAL CHIEF TECHNICIAN Trever Hilliard MD LAB MICROBIOLOGY - GENERAL ORDERABLES Final Result Performing Organization Address [facility] de Phone Number [facility] [address] [place] [address] * Hepatitis B Surface Antigen Blood (10/29/2024 11:03 AM MEDICAL CHIEF TECHNICIAN) Pathologist [facility] HepBsAg NON-REACTI VE NON-REACTI VE [facility] Comment: For additional information, please refer to http://education.[employer].Photofy/faq/LZD200 (This link is being provided for informational/ educational purposes only.) Blood 10/29/2024 11:0 3 AM MEDICAL CHIEF TECHNICIAN 10/29/2024 11:03 AM MEDICAL CHIEF TECHNICIAN Trever Hilliard MD LAB MICROBIOLOGY - GENERAL ORDERABLES Final Result Performing Organization Address [facility] de Phone Number [facility] [address] [place] [address] * (ABNORMAL) Hemoglobin A1c (10/29/2024 11:01 AM MEDICAL CHIEF TECHNICIAN) Hgb A1C 8.0(H) <5.7 % of total Hgb [facility] Comment: For someone without known [...] for children. Blood 10/29/2024 11:0 1 AM MEDICAL CHIEF TECHNICIAN 10/29/2024 11:02 AM MEDICAL CHIEF TECHNICIAN us Trever Hilliard MD LAB BLOOD ORDERABLES Final Result [facility] [address] [place] [address] * Albumin Creatinine Ratio, Urine (10/18/2024 2:03 PM MEDICAL CHIEF TECHNICIAN) Creatinine, ur 86 20 - 320 mg/dL [...] a diagnostic category. Urine 10/18/2024 2:03 PM MEDICAL CHIEF TECHNICIAN 10/18/2024 2:04 PM MEDICAL CHIEF TECHNICIAN us Trever Hilliard MD LAB URINE ORDERABLES Final Result Performing Organization Address City/[facility]/ZIP Co de Phone Number [facility] [address] [address] [address] * (ABNORMAL) Lipid panel (10/18/2024 2:03 PM MEDICAL CHIEF TECHNICIAN) Cholesterol 189 <200 mg/dL [facility] [...] factors. LDL-C is now calculated using the Ted-Adan calculation, which is a validated novel method providing better accuracy than the Friedewald equation in the estimation of LDL-C. Ted SS et al. KUMAR. 2013;310(19): 4827-0903 (http://education.Navent/faq/LVC640) Chol/HDL ratio 4.1 <5.0 (calc) [facility] Non-HDL, (LDL+VLDL) 143(H) <130 mg/dL (calc) [facility] Comment: For patients with diabetes plus 1 major ASCVD risk factor, treating to a non-HDL-C goal of <100 mg/dL (LDL-C of <70 mg/dL) is considered a therapeutic option. Blood 10/18/2024 2:03 PM MEDICAL CHIEF TECHNICIAN 10/18/2024 2:04 PM MEDICAL CHIEF TECHNICIAN us Trever Hilliard MD LAB BLOOD ORDERABLES Final Result [facility] [address] [address] [address] * (ABNORMAL) Comprehensive metabolic panel (10/18/2024 2:03 PM MEDICAL CHIEF TECHNICIAN) Glucose 198(H) 65 - 99 mg/dL [facility] [...] [facility] Blood 10/18/2024 2:03 PM MEDICAL CHIEF TECHNICIAN 10/18/2024 2:04 PM MEDICAL CHIEF TECHNICIAN us Trever Hilliard MD LAB BLOOD ORDERABLES Final Result [facility] [address] [address] [address] * Colonoscopy (08/19/2024 8:22 AM MEDICAL CHIEF TECHNICIAN) Anatomical Region Laterality Modality Other Narrative Procedure Note Katharine Alcala MD - 08/19/2024 8:22 AM CST [facility] Patient Name: Delmar Reid Procedure Date: 08/19/2024 8:22 AM Date of : 1950 Admit Type: Outpatient Age: 73 Gender: Male Attending MD: Katharine Alcala M.D. Room: [facility] ENDOSCOPY ROOM 1 Note Status: Finalized Patient [...] under direct vision. The Pediatric Colonoscope [id number]-[id number] was introducedthrough the anus and advanced to [...] 8:22 AM Procedure Code(s): --- Professional --- 58590, Colonoscopy, flexible; with biopsy, single or multiple Diagnosis Code(s): --- Professional --- Z86.010, Personal history of colonic polyps K64.8, Other hemorrhoids D12.4, Benign neoplasm of descending colon CPT copyright 2020 [employer]. All rights reserved. The codes documented in this report are preliminary and upon cloth printing inspector reviewmay be revised to meet current compliance requirements. Recognized by the [employer] [employer] for promoting quality in endoscopy Katharine Alcala MD ENDOSCOPY PROCEDURES Final Result * PSA screen (10/12/2021 8:01 AM MEDICAL CHIEF TECHNICIAN) Pathologist [facility] PSA 3.21 < OR = 4.00 ng/mL [facility] Comment: The total PSA value from this assay system is standardized against the WHO standard. The test result will be approximately 20% lower when compared to the equimolar-standardized total PSA ([place]). Comparison of serial PSA results should be interpreted with this fact in mind. This test was performed using the Siemens chemiluminescent method. Values obtained from different assay methods cannot be used interchangeably. PSA levels, regardless of value, should not be interpreted as absolute evidence of the presence or absence of disease. Blood specimen (specimen) 10/12/2021 8:01 AM MEDICAL CHIEF TECHNICIAN 10/12/2021 8:03 AM MEDICAL CHIEF TECHNICIAN us Trever Hilliard MD LAB BLOOD ORDERABLES Final Result [facility] [address] [place] [address] * Hepatitis C antibody (01/13/2017 10:25 AM CDT) Hep C Ab Negative Negative ZAC AGUILERA Blood specimen (specimen) 01/13/2017 10:25 AM CDT 01/13/2017 8:11 PM CDT Trever Hilliard MD LAB MICROBIOLOGY - GENERAL ORDERABLES Final Result [facility] [id number] Department [place] [address] from Last 3 Months or Most Recently Relevant to Health Maintenance Insurance [facility] CHOICE PLUS [email or web address] [facility] Advance Directives For more information, please contact: [phone] * Full Code (Latest Code Status on File) Date Activated Date Inactivated Comments 08/19/2024 8:24 AM 08/19/2024 2:40 PM * Full Code Date Activated Date Inactivated Comments 08/19/2024 8:24 AM 08/19/2024 8:24 AM * Full Code Date Activated Date Inactivated Comments 02/14/2022 11:53 AM 02/14/2022 6:00 PM * Full Code Date Activated Date Inactivated Comments 02/14/2022 11:52 AM 02/14/2022 11:52 AM Care Teams Basin Cleaner Relationship Specialty Start Date End Date Trever Hilliard MD PCP - General 10/04/13
--- NOTE | 2024-11-21 09:08 | ED.URI ---
HPI - URI/Sore Throat General Chief Complaint: Upper Respiratory Infection Stated Complaint: cough/chest congestion Time Seen by Provider: 11/21/24 09:00 Source: patient, family, RN notes reviewed and old records reviewed Mode of arrival: ambulatory Limitations: no limitations History of Present Illness HPI Narrative: 74 year old male accompanied by spouse with complaints of cough, congestion, headache, sinus pressure for one week duration. Patient reports that cough has been productive at times denies any shortness of breath. reports that patient has been taking Tylenol cold and sinus and also just started also on some Mucinex for his symptoms. Patient reports that headache frontal aspect is constant aching. MD elicited complaint: cough, rhinorrhea, nasal congestion, sinus pain and other (headache) Onset (ago): week(s) (1) Pain scale (0-10): 8 Able to tolerate fluids by mouth: Yes Treatments prior to arrival: other (Tylenol cold and sinus and also Mucinex) Related Data Home Medications ?Medication ?Instructions ?Recorded ?Confirmed ?Last Taken ?Type dapagliflozin propanediol 10 mg 10 mg PO DAILY 11/20/23 11/20/23 Unknown History tablet (Farxiga) donepezil 5 mg tablet 10 mg PO HS 11/20/23 11/21/24 Unknown History ezetimibe 10 mg tablet 10 mg PO DAILY 11/20/23 11/20/23 Unknown History insulin glargine U-300 conc 300 40 unit subcut DAILY 11/20/23 11/20/23 Unknown History unit/mL (1.5 mL) subcutaneous pen (Toujeo SoloStar U-300 Insulin) sertraline 100 mg tablet 100 mg PO DAILY 11/20/23 11/20/23 Unknown History donepezil 10 mg tablet mg 11/21/24 Unknown History memantine 10 mg tablet mg 11/21/24 Unknown History Allergies Allergy/AdvReac Type Severity Reaction Status Date / Time No Known Allergies Allergy Verified 11/21/24 09:01 Review of Systems Review of Systems: CONSTITUTIONAL: Reports malaise,no chills, sweats, or fever. EYES: Denies visual changes, redness, or discharge. ENT: Reports rhinorrhea, congestion, sinus pain,no otalgia and no sore throat. CARDIOVASCULAR: Denies chest pain, palpitations, or edema. RESPIRATORY: Reports productive cough.? Denies dyspnea. GASTROINTESTINAL: Denies abdominal pain, nausea, vomiting, diarrhea SKIN: Denies rash or itching. MUSCULOSKELETAL: Denies myalgia. NEUROLOGIC: Reports headache. All systems reviewed & are unremarkable except as noted in HPI and below PMFSH Past Medical History Medical History (Updated 11/22/24 @ 00:01 by Marcia Daemon) Colon polyps Memory change Depression Elevated cholesterol Diabetes Surgical History Surgical History (Updated 11/21/24 @ 09:15 by Indigo Sagastume NP) History of lymph node excision axilla benign Social History Social History (Updated 11/23/24 @ 08:27 by Indigo Sagastume NP) Smoking status: Former smoker Tobacco type: cigarettes Additional smoking assessment comments: Quit many years ago and was only some day smoker Alcohol intake: current Alcohol use details: rare Substance use type: does not use Living arrangements: with family Gender identity (if verbalized by the patient): Male Comments At time of signature, agree with nursing past medical, surgical, social and family history. There is no relevant family history pertinent to the presenting complaint Exam Narrative: GENERAL: Well-appearing, well-nourished, and in no acute distress. HEAD: Normocephalic EYES: PERRLA, conjunctivae clear ENT: Nares clear, turbinates edematous and erythematous, clear discharge, sinus pressure and frontal headache. Mucous membranes moist. TM pearly lerma with dull light reflex bilaterally; no tragal tenderness. Oropharynx erythematous without lesions. Tonsils not enlarged and without exudate, no drooling, no hoarseness, no trismus, uvula midline.post nasal drainage NECK: Supple. No lymphadenopathy CHEST: Crackles noted to left base on auscultation, breath sounds equal. No wheezing, rhonchi, rales, or stridor. No respiratory distress, speaks in full sentences productive cough, SAO2 98% on room air. HEART: Regular rate and rhythm. No murmur heard. SKIN: Warm, dry, no rash. NEURO: Alert and oriented x3. PSYCH: Normal mood and affect Course Course Emergency Course: Patient is aware of diagnosis, understands and agrees to treatment plan.? Anticipatory guidance given.? Patient agrees to follow-up as directed and is aware of reasons to seek care at the emergency department. Portions of this record may have been created with voice recognition software Level of Care: Express Care Visit Vital Signs Vital signs: Vital Signs Temperature 36.4 C L 11/21/24 08:46 Pulse Rate 59 L 11/21/24 08:46 Respiratory Rate 20 11/21/24 08:46 Blood Pressure 124/65 11/21/24 08:46 Pulse Oximetry 98 11/21/24 08:46 Oxygen Delivery Room Air 11/21/24 08:46 Temperature 36.4 C L 11/21/24 08:46 Pulse Rate 59 L 11/21/24 08:46 Respiratory Rate 20 11/21/24 08:46 Blood Pressure 124/65 11/21/24 08:46 Pulse Oximetry 98 11/21/24 08:46 Oxygen Delivery Room Air 11/21/24 08:46 Reviewed MDM - URI/Sore Throat MDM Narrative Medical decision making narrative: Differential diagnosis considered: Flynn virus, strep pharyngitis, allergic rhinitis, upper respiratory tract infection, sinusitis, rhinosinusitis, nasopharyngitis. viral pharyngitis, otitis media, otitis externa, pneumonia, bronchitis, viral cough syndrome, viral syndrome, and influenza.? Exam findings show no acute concerns or changes; patient is non-toxic appearing and is in no distress.? Patient is appropriate for outpatient treatment and follow-up. Differential Diagnosis Differential diagnosis: Likely upper respiratory infection, sinusitis, viral infection and other (cough and congestion) Medical Records Attestation: I reviewed the patient's medical records. Lab Data Attestation: I reviewed the patient's lab results. Imaging Data Attestation: I personally reviewed and interpreted this imaging study as follows: My impression: mild atelectasis at left lung base Radiologist's impression: [phone] XRay Report Signed Patient: Delmar Reid : 1950 MR#: [id number] Age: 74 Acct:[id number] Loc: [facility] ADM Date: 11/21/24Attending Dr: Ordering Physician: Indigo Sagastume APRN Date of Service: 11/21/24 Procedure(s): XR chest 2V Accession Number(s): [id number] cc: Babak, Trever Ruggiero; Indigo Sagastume APRN~ EXAMINATION: XR chest 2V DATE: 11/21/2024 09:18 INDICATION: Cough and congestion. TECHNIQUE: Frontal and lateral views of the chest were obtained. COMPARISON: None. FINDINGS: There is mild atelectasis at left lung base. No pleural effusion or pneumothorax. The heart size is normal. IMPRESSION: 1. Mild atelectasis at left lung base. Reviewed, dictated and finalized at location A. Please be advised this is a medical document. It is intended for [id number] communication. It is written in medical language and may contain unfamiliar abbreviations or verbiage. Medical documents are intended to carry relevant information, facts as evident, and the clinical opinion of the practitioner at the time of the encounter. This report may have been done utilizing a voice recognition system. Attempts have been made to correct errors. However, there may be uncorrected grammatical, spelling, and recognition errors present. The file time of this note does not necessarily represent the time of service. Dictated By: Kailash Marcial MD 11/21/24918 Signed By: <Electronically signed by Kailash Marcial MD in OV> Critical Care Time Critical Care Time Critical Care Time: No Discharge Plan Discharge Clinical Impression: Upper respiratory infection with cough and congestion Patient Disposition: Home, Self-Care Condition: Stable Instructions: Antibiotic Form, Upper Respiratory Infection (ED), Acute Cough (ED) Additional Instructions: Increase fluids especially juices and water [id number] cough and cold medicine of your choice for your symptoms Zyrtec Claritin or Geraldine daily Tylenol or ibuprofen for any fever pain Mucinex DM daily for cough and congestion heat to the face 20-30 minutes 4-6 times a day for pain Salt water gargles, throat lozenges or throat sprays as desired Antibiotic as directed--finished the medication Encourage coughing and deep breathing exercises every 2 hours swallowing If your symptoms persist, change or worsen significantly before you can contact your personal physician then please, without delay, go to the emergency department for further evaluation. Follow-up with PCP in 7-10 days or sooner if needed Patient Language: Danish Prescriptions: New amoxicillin 875 mg tablet 875 mg PO Q12H Qty: 20 0RF Rx Instructions: take with food No Action donepezil 10 mg tablet memantine 10 mg tablet sertraline 100 mg tablet 100 mg PO DAILY ezetimibe 10 mg tablet 10 mg PO DAILY dapagliflozin propanediol [Farxiga] 10 mg tablet 10 mg PO DAILY insulin glargine U-300 conc [Toujeo SoloStar U-300 Insulin] 300 unit/mL (1.5 mL) insulin pen 40 unit SUBCUT DAILY donepezil 5 mg tablet 10 mg PO HS Follow-up/Referrals: Babak,Trever Ruggiero MD [Primary Care Provider] - Time of Disposition: 09:43 Quality [place] Coma Scale Eyes: Open Verbal: Oriented and Alert Motor: Follows Commands [place] Coma Total Score: 15
== END 2024-11-21 09:48 | disposition home or self-care (01) ==
PROVIDERS: Emergency Provider Registered Nurse; PCP Internal Medicine
DX: J06.9 Acute upper respiratory infection, unspecified (principal); R05.9 Cough, unspecified; E11.9 Type 2 diabetes mellitus without complications; Z79.4 Long term (current) use of insulin; E78.00 Pure hypercholesterolemia, unspecified; Z87.891 Personal history of nicotine dependence
CPT/HCPCS: 71046; 99213; G0463